=== PATIENT | female | born 1990 | race Caucasian/White ===

== ENCOUNTER 2019-07-04 14:38 | Inpatient (IN) | payer MEDICAID, OTHER ==
--- NOTE | 2019-07-04 16:20 | ED ---
Psych HPI - General Chief Complaint: Psychiatric Symptoms Stated Complaint: eps eval Time Seen by Provider: 07/04/19 15:09 Source: patient, RN notes reviewed, old records reviewed Mode of arrival: ambulatory - History of Present Illness Initial Comments: This is a 29-year-old female DF for evaluation patient presents today for evaluation. Patient did cut herself a few times as of late does admit to increased stress in her life having do with her living situation with her par ents as well as her kids she smokes marijuana denies drugs or alcohol. Patient does admit to severe depression MD Complaint: suicidal ideation, feels depressed -: minutes(s) Associated Psychiatric Symptoms: depression, suicidal ideation History of same: Yes Quality: intermittent Improves With: none Worsens With: none Context: recent drug abuse, not taking psychiatric medications Associated Symptoms: confusion Treatments Prior to Arrival: placed on mental health hold If Self Harm: admits thoughts of self harm - Related Data Home Medications Medication Instructions Recorded Confirmed Ibuprofen 800 mg PO ONCE PRN 07/04/19 07/04/19 Omeprazole 40 mg PO DAILY 07/04/19 07/04/19 clonazePAM 0.5 - 1 mg PO TID PRN 07/04/19 07/04/19 Allergies Allergy/AdvReac Type Severity Reaction Status Date / Time albuterol Allergy Dyspnea Verified 07/04/19 16:53 aspirin Allergy Rash/Hives Verified 07/04/19 16:53 codeine Allergy Nausea & Verified 07/04/19 16:53 Vomiting Review of Systems ROS Statement: Those systems with pertinent positive or pertinent negative responses have been documented in the HPI. ROS Other: All systems not noted in ROS Statement are negative. Past Medical History Past Medical History: No Reported History History of Any Multi-Drug Resistant Organisms: None Reported Past Surgical History: Tonsillectomy Past Psychological History: Anxiety Smoking Status: Current every day smoker Past Alcohol Use History: Occasional Past Drug Use History: Marijuana - Past Family History Father Family Medical History: Hypertension Additional Family Medical History / Comment(s): TIA Mother Family Medical History: Blood Disorder, GERD/Reflux Additional Family Medical History / Comment(s): "Possible hypertension Sister(s) History Unknown: Yes Additional Family Medical History / Comment(s): 1 sister Brother(s) Additional Family Medical History / Comment(s): Pt. reports that her older brother is 35 y/o- Living but unknown medical history. Pt. also has a 27 y/o brother-alive and no known medical issues General Exam Limitations: no limitations General appearance: alert, in no apparent distress Head exam: Present: atraumatic, normocephalic, normal inspection Eye exam: Present: normal appearance, PERRL, EOMI. Absent: scleral icterus, conjunctival injection, periorbital swelling ENT exam: Present: normal exam, mucous membranes moist Neck exam: Present: normal inspection. Absent: tenderness, meningismus, lymphadenopathy Respiratory exam: Present: normal lung sounds bilaterally. Absent: respiratory distress, wheezes, rales, rhonchi, stridor Cardiovascular Exam: Present: regular rate, normal rhythm, normal heart sounds. Absent: systolic murmur, diastolic murmur, rubs, gallop, clicks GI/Abdominal exam: Present: soft, normal bowel sounds. Absent: distended, tenderness, guarding, rebound, rigid Extremities exam: Present: normal inspection, full ROM, normal capillary refill. Absent: tenderness, pedal edema, joint swelling, calf tenderness Back exam: Present: normal inspection Neurological exam: Present: alert, oriented X3, CN II-XII intact Psychiatric exam: Present: normal affect, normal mood Skin exam: Present: warm, dry, intact, normal color. Absent: rash Course Vital Signs 07/04/19 15:00 Temperature 98.8 F Pulse Rate 89 Respiratory 18 Rate Blood Pressure 116/80 O2 Sat by Pulse 98 Oximetry - Reevaluation(s) Reevaluation #1: 07/04/19 22:06 Medical record is reviewed. Medical Decision Making - Medical Decision Making 29 female seen and evaluated by mental health decision made to treat for inpatient psychiatric evaluation - Lab Data Result diagrams: 07/05/19 06:41 07/05/19 06:41 Lab Results 07/04/19 07/04/19 07/04/19 Range/Units 15:50 15:50 15:50 Urine Color Yellow Urine Appearance Cloudy H (Clear) Urine pH 7.0 (5.0-8.0) Ur Specific [place] 1.016 (1.001-1.035) Urine Protein Trace H (Negative) Urine Glucose (UA) Negative (Negative) Urine Ketones Negative (Negative) Urine Blood Large H (Negative) Urine Nitrite Negative (Negative) Urine Bilirubin Negative (Negative) Urine Urobilinogen <2.0 (<2.0) mg/dL Ur Leukocyte Esterase Negative (Negative) Urine RBC 4 (0-5) /hpf Urine WBC 4 (0-5) /hpf Ur Squamous Epith Cells 9 H (0-4) /hpf Urine Bacteria Moderate H (None) /hpf Urine Mucus Many H (None) /hpf Urine HCG, Qual Not Detected (Not Detectd) Urine Opiates Screen Not Detected (NotDetected) Ur Oxycodone Screen Not Detected (NotDetected) Urine Methadone Screen Not Detected (NotDetected) Ur Propoxyphene Screen Not Detected (NotDetected) Ur Barbiturates Screen Not Detected (NotDetected) U Tricyclic Antidepress Not Detected (NotDetected) Ur Phencyclidine Scrn Not Detected (NotDetected) Ur Amphetamines Screen Not Detected (NotDetected) U Methamphetamines Scrn Not Detected (NotDetected) U Benzodiazepines Scrn Not Detected (NotDetected) Urine Cocaine Screen Not Detected (NotDetected) U Marijuana (THC) Screen Detected H (NotDetected) Disposition Clinical Impression: Depression, Suicidal ideation Disposition: TRANSFER TO PSYCH HOSP/UNIT Condition: Fair Is patient prescribed a controlled substance at d/c from ED?: No
[2019-07-04 17:25] LABS: Amphetamine Screen,Urine Not Detected (NotDetected); Barbiturate Screen,Urine Not Detected (NotDetected); Benzodiazepines Screen,Urine Not Detected (NotDetected); Cocaine Screen,Urine Not Detected (NotDetected); Methadone Screen, Urine Not Detected (NotDetected); Opiate Screen,Urine Not Detected (NotDetected); Oxycodone Screen, Urine Not Detected (NotDetected); Phencyclidine Screen,Urine Not Detected (NotDetected); Tricyclic Antidepressant,Urine Not Detected (NotDetected); Urn Cannabinoid Scrn Detected (NotDetected)
[2019-07-04] MEDS ORDERED: LORazepam 1 MG TAB PO STA (18:11)
[2019-07-04] MEDS ORDERED: MAGNESIUM HYDROXIDE 2,400 MG/10 ML CUP PO PRN (22:58)
[2019-07-04 23:30] LABS: Appearance,Urine Cloudy (Clear); Bacteria,Urine Moderate /hpf; Bilirubin,Urine Negative (Negative); Blood,Urine Large (Negative); Color,Urine Yellow; Glucose,Urine (UA) Negative (Negative); Ketones,Urine Negative (Negative); Leukocyte Esterase,Urine Negative (Negative); Mucus,Urine Many /hpf; Nitrite,Urine Negative (Negative); Protein,Urine Trace (Negative); RBC,Urine 4 /hpf (0-5); Specific Gravity,Urine 1.016 (1.001-1.035); Squamous Epithelial Cell,Urine 9 /hpf (0-4); Urobilinogen,Urine <2.0 mg/dL (<2.0); WBC,Urine 4 /hpf (0-5)
[2019-07-05] MEDS: ACETAMINOPHEN TAB 325 MG TAB PO PRN ×2 (01:02→17:58)
[2019-07-05] MEDS: clonazePAM 1 MG TAB PO PRN ×3 (01:03→22:18)
[2019-07-05] MEDS: NICOTINE 21MG/24HR PATCH TRANSDERM SCH ×2 (01:32→08:51)
[2019-07-05 06:55] LABS: Basophils % (A) 0 %; Eosinophils # (A) 0.3 k/uL (0-0.7); Eosinophils % (A) 3 %; HCT 43.1 % (34.0-46.0); Lymphocytes # (A) 4.4 k/uL (1.0-4.8); Lymphocytes % (A) 43 %; MCH 30.8 pg (25.0-35.0); MCHC 32.5 g/dL (31.0-37.0); MCV 94.8 fL (80.0-100.0); Mean Platelet Volume 6.9; Monocytes # (A) 0.4 k/uL (0-1.0); Monocytes % (A) 4 %; Neutrophils % (A) 49 %; Platelet Count 273 k/uL (150-450); RBC 4.55 m/uL (3.80-5.40); RDW 11.7 % (11.5-15.5); WBC 10.2 k/uL (3.8-10.6)
[2019-07-05 07:06] LABS: ALT 10 U/L (4-34); AST 17 U/L (14-36); African American GFR (CKD) >90 (>60 ml/min/1.73 sqM); Albumin 4.6 g/dL (3.5-5.0); Alkaline Phosphatase 57 U/L (38-126); Anion Gap 9 mmol/L; Blood Urea Nitrogen 13 mg/dL (7-17); Carbon Dioxide 29 mmol/L (22-30); Chloride 103 mmol/L (98-107); Cholesterol 191 mg/dL (<200); Glucose 100 mg/dL (74-99); HDL Cholesterol 41 mg/dL (40-60); LDL Cholesterol,Calculated 114 mg/dL (0-99); Non-African American GFR(CKD) >90 (>60 ml/min/1.73 sqM); Potassium 4.6 mmol/L (3.5-5.1); Sodium 141 mmol/L (137-145); Total Bilirubin 0.7 mg/dL (0.2-1.3); Total Protein 7.4 g/dL (6.3-8.2); Triglycerides 179 mg/dL (<150)
[2019-07-05] MEDS ORDERED: NICOTINE 21MG/24HR PATCH TRANSDERM SCH (09:00)
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
[2019-07-05 14:19] LABS: Hemoglobin A1C 5.2 % (4.0-6.0)
[2019-07-05] MEDS: MAG HYDROX/AL HYDROX/SIMETH 30 ML CUP PO PRN ×2 (17:58→22:18)
[2019-07-05] MEDS: MELATONIN 3 MG TABLET PO SCH (20:21)
[2019-07-05] MEDS: SERTRALINE 25 MG TAB PO SCH (20:21)
[2019-07-05 21:14] LABS: T4, Free (Free Thyroxine) 1.09 ng/dL (0.78-2.19)
--- NOTE | 2019-07-05 22:33 | P.CONS ---
History of Present Illness - History of Present Illness This is a pleasant 20 female with past medical history of anxiety and depression and cigarette smoker, history of substance abuse including marijuana and cocaine. With occasional alcohol abuse. He was admitted to the mental health unit for signs and symptoms of depression. Medical consult has been obtained for medical management. Patient denies any specific complaints, no chest pain, no dyspnea, no abdominal pain, nausea vomiting, no change in urine or bowel habits. No fever Vital signs stable. Patient labs include a CBC, BMP and liver enzymes were unremarkable. Glucose 100, cholesterol 191, LDL is 1.4, urine is cloudy with 4 RBCs and 4 WBCs which are within normal limits. Urine drug screen is positive for marijuana TSH is 6.1, free T4 is normal Patient states she has currently managed well with Some blood in the urine, no UTIs signs symptoms, I offered to do test but patient declined, risks benefits and alternatives explained. She was concerned about her abnormal TSH stating that her father had thyroid disease and she wants to follow up with purchasing and claims supervisor, contact information for Dr. Obando is provided for the patient and patient agrees to call and make her own appointment upon discharge and she agrees Review of Systems CONSTITUTIONAL: No fever, no malaise, no fatigue. HEENT: No recent visual problems or hearing problems. Denied any sore throat. CARDIOVASCULAR: No orthopnea, PND, no palpitations, no syncope. PULMONARY: No shortness of breath, no cough, no hemoptysis. GASTROINTESTINAL: No diarrhea, no nausea, no vomiting, no abdominal pain. Normoactive bowel sounds. NEUROLOGICAL: No headaches, no weakness, no numbness. HEMATOLOGICAL: Denies any bleeding or petechiae. GENITOURINARY: Denies any burning micturition, frequency, or urgency. MUSCULOSKELETAL/RHEUMATOLOGICAL: Denies any joint pain, swelling, or any muscle pain. ENDOCRINE: Denies any polyuria or polydipsia. Past Medical History Past Medical History: No Reported History History of Any Multi-Drug Resistant Organisms: None Reported Past Surgical History: Section, Tonsillectomy Past Anesthesia/Blood Transfusion Reactions: No Reported Reaction Past Psychological History: Anxiety, Depression Smoking Status: Current every day smoker Past Alcohol Use History: Occasional Past Drug Use History: Cocaine, Marijuana, Prescription Drug Abuse - Past Family History Father Family Medical History: Hypertension Additional Family Medical History / Comment(s): TIA Mother Family Medical History: Blood Disorder, GERD/Reflux Additional Family Medical History / Comment(s): "Possible hypertension Sister(s) History Unknown: Yes Additional Family Medical History / Comment(s): 1 sister Brother(s) Additional Family Medical History / Comment(s): Pt. reports that her older brother is 35 y/o- Living but unknown medical history. Pt. also has a 27 y/o brother-alive and no known medical issues Medications and Allergies Home Medications Medication Instructions Recorded Confirmed Type Ibuprofen 800 mg PO ONCE PRN 07/04/19 07/04/19 History Omeprazole 40 mg PO DAILY 07/04/19 07/04/19 History clonazePAM 0.5 - 1 mg PO TID PRN 07/04/19 07/04/19 History Allergies Allergy/AdvReac Type Severity Reaction Status Date / Time albuterol Allergy Dyspnea Verified 07/04/19 16:53 aspirin Allergy Rash/Hives Verified 07/04/19 16:53 codeine Allergy Nausea & Verified 07/04/19 16:53 Vomiting Physical Exam Vitals: Vital Signs Temp Pulse Pulse Resp BP BP Pulse Ox 07/04/19 23:26 97.7 F 74 18 106/68 98 07/04/19 15:00 98.8 F 89 18 116/80 98 Intake and Output 07/04/19 07/05/19 07/05/19 22:59 06:59 14:59 Other: Weight 68.039 kg 66.678 kg GENERAL: The patient is alert and oriented x3, not in any acute distress. Well developed, well nourished. HEENT: Pupils are round and equally reacting to light. EOMI. No scleral icterus. No conjunctival pallor. Normocephalic, atraumatic. No pharyngeal erythema. No thyromegaly. CARDIOVASCULAR: S1 and S2 present. No murmurs, rubs, or gallops. PULMONARY: Chest is clear to auscultation, no wheezing or crackles. ABDOMEN: Soft, nontender, nondistended, normoactive bowel sounds. No palpable organomegaly. MUSCULOSKELETAL: No joint swelling or deformity. EXTREMITIES: No cyanosis, clubbing, or pedal edema. NEUROLOGICAL: Gross neurological examination did not reveal any focal deficits. SKIN: No rashes. No petechiae Results CBC & Chem 7: 07/05/19 06:41 07/05/19 06:41 Labs: Abnormal Lab Results - Last 24 Hours (Table) 07/04/19 07/04/19 07/05/19 Range/Units 15:50 15:50 06:41 Glucose 100 H (74-99) mg/dL Triglycerides 179 H (<150) mg/dL LDL Cholesterol, Calc 114 H (0-99) mg/dL TSH 6.130 H (0.465-4.680) mIU/L Urine Appearance Cloudy H (Clear) Urine Protein Trace H (Negative) Urine Blood Large H (Negative) Ur Squamous Epith Cells 9 H (0-4) /hpf Urine Bacteria Moderate H (None) /hpf Urine Mucus Many H (None) /hpf U Marijuana (THC) Screen Detected H (NotDetected) Assessment and Plan Assessment: -Depression anxiety and other psychiatric illnesses, management as per psych primary team -Seated smoker, patient was counseled to quit, she declines. -Substance abuse program marijuana, patient was counseled to quit -History of substance abuse including cocaine, morbidly and others, not an active issue. -Patient was counseled for low fat diet -High TSH, normal T4 suspicious for subclinical hyperthyroidism. Follow-up as an outpatient with PCP. Patient was to see purchasing and claims supervisor as an outpatient and information is provided for her and she agrees Patient is low risk for DVT, no need for completion Patient was instructed to follow up with her PCP Dr. Baxter in 1 week and she agrees Thank you for consulting us, we will see the patient on as needed basis. [facility] free to contact us for any further questions or concerns
[2019-07-06] MEDS: MAG HYDROX/AL HYDROX/SIMETH 30 ML CUP PO PRN ×3 (05:03→18:55)
[2019-07-06] MEDS: NICOTINE 21MG/24HR PATCH TRANSDERM SCH (09:08)
[2019-07-06] MEDS: PANTOPRAZOLE 40 MG TABLET PO SCH (11:12)
[2019-07-06] MEDS: clonazePAM 1 MG TAB PO PRN ×2 (11:15→22:23)
--- NOTE | 2019-07-06 11:38 | P.PN ---
Progress Note - Text Interval history: The patient is found in the [facility] she follows me to an interview room. She indicates that her mood is mildly better. She had an episode of emesis yesterday. Internal medicine" her on Protonix and Zofran as needed she has been using Maalox. She states that she does have a history of colitis in the remote past. This also may be reflux related. She has no questions or concerns regarding the Zoloft. She did have a phone conversation with her boyfriend which seemed to go well. She has been attending groups. She was able to sleep last night. She did not eat breakfast this morning due to her nausea. Mental status exam: The patient is an alert female appearing her stated age she is dressed in her own clothing she is wearing a blanket over top. Eye contact is appropriate speech is fluent and spontaneous nonpressured. She indicates her mood is a little better she reports no acute suicidal ideation intent or plan at this time. She reports no auditory or visual hallucinations or any specific delusions. There is no observed evidence of psychosis. She demonstrates no verbal or physical aggressiveness she demonstrates no involuntary repetitive movements. Insight and judgment grossly intact. Plan: The patient will continue on the Zoloft we are using a low dose as she is concerned about potential side effects. We discussed that this will need to be titrated further during the course of the hospitalization. She is encouraged to participate in the milieu. We will monitor for safety. Vital signs reviewed.
[2019-07-06] MEDS: ACETAMINOPHEN TAB 325 MG TAB PO PRN (18:55)
[2019-07-06] MEDS: SERTRALINE 25 MG TAB PO SCH (22:23)
[2019-07-06] MEDS: MELATONIN 3 MG TABLET PO SCH (22:23)
[2019-07-07] MEDS: ACETAMINOPHEN TAB 325 MG TAB PO PRN ×2 (00:04→19:22)
[2019-07-07] MEDS: MAG HYDROX/AL HYDROX/SIMETH 30 ML CUP PO PRN ×2 (00:05→19:26)
[2019-07-07] MEDS: PANTOPRAZOLE 40 MG TABLET PO SCH (07:57)
[2019-07-07] MEDS: NICOTINE 21MG/24HR PATCH TRANSDERM SCH (07:57)
[2019-07-07] MEDS: ONDANSETRON ODT 4 MG TAB PO PRN (07:57)
[2019-07-07] MEDS: clonazePAM 1 MG TAB PO PRN ×2 (10:44→21:52)
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
[2019-07-07 20:58] LABS: Glucose,Whole Blood 99 mg/dL (75-99)
[2019-07-07] MEDS: MELATONIN 3 MG TABLET PO SCH (21:51)
[2019-07-07] MEDS: SERTRALINE 25 MG TAB PO SCH (21:51)
[2019-07-08 06:19] VITALS: RESP 16; TEMP 98.6
[2019-07-08] MEDS: ONDANSETRON ODT 4 MG TAB PO PRN (07:03)
[2019-07-08] MEDS: NICOTINE 21MG/24HR PATCH TRANSDERM SCH (08:35)
[2019-07-08] MEDS: PANTOPRAZOLE 40 MG TABLET PO SCH (08:36)
[2019-07-08 08:39] VITALS: BP 124/86; PULSE 74
[2019-07-08] MEDS: clonazePAM 1 MG TAB PO PRN (12:11)
[2019-07-08] MEDS: ACETAMINOPHEN TAB 325 MG TAB PO PRN (12:12)
--- NOTE | 2019-07-08 12:40 | P.DS ---
Providers Date of admission: 07/04/19 22:53 Attending physician: Danny Jordan MD Consults: 07/04/19 22:58 Consult Physician Routine Consulting Provider: Wally Wellington Consult Reason/Comments: Medical Management Do you want consulting provider notified?: Yes, Notify in am Primary care physician: Aris Ordonez - Discharge Diagnosis(es) (1) Suicidal ideation Current Visit: Yes Status: Suspected Priority: Low (2) Deliberate self-cutting Current Visit: Yes Status: Chronic Priority: Low (3) Major depressive disorder, recurrent severe without psychotic features Current Visit: Yes Status: Acute Priority: Medium (4) Alcohol use disorder, mild, abuse Current Visit: Yes Status: Chronic Priority: Medium (5) Cannabis use disorder, moderate, dependence Current Visit: Yes Status: Chronic Priority: Medium (6) Borderline personality disorder Current Visit: Yes Status: Chronic Priority: High Hospital Course: She is a 29-year-old single female admitted voluntarily to the psychiatric unit with a history of suicidal ideation and of her self cutting. She reported that she had cut herself on the medial right ankle superficially on a daily admission. His feeling depressed and overwhelmed and had suicidal ideation. She described several symptoms depression including lack of energy, decreased interest in activities, and decreased appetite. She is she was tearful and described feeling hopeless, lost and "useless". These symptoms have been present for last 2 weeks and intensified on the week prior to admission. His symptoms developed following a separation from her most recent boyfriend and a temporary absence of her 5-year-old son. She shares joint custody with his father and the custody arrangements was temporarily disrupted with her son developed a fever while visiting with his father. She endorsed no psychotic symptoms and she has no history of chyna or hypomania. She has long history of deliberate nonlethal self-harm including burning herself and cutting herself beginning in her teen years. However she reports that she has not exhibited these behaviors for the last 7 years. She is not beat with a outpatient therapist. Her primary care provider has prescribed prescribing Klonopin for complaints of anxiety or she is taking up to 3 mg per day. She has a history of intermittent heavy alcohol use and daily heavy marijuana use. Her UDS was positive for cannabis on a drug screen. She occasionally uses her friend's Adderall but denied that she has regularly used or abused Adderall. She has history of using several illicit drugs in the past but has not used t hem in several years. She is never been placed in a residential treatment program for substance use. We admitted her psychiatric unit under care of this typewriter ribbon winder. We provided a comprehensive biopsychosocial assessment. The showroom consultant career technical education instructor completed initial physical exam and medical history and diagnosed height TSH, normal T4 suspicious of subclinical hypothyroidism. Reconsult her on her high use of benzodiazepine and decreased her dose of clonazepam to 1 mg by mouth twice a day with recommendation to continue to taper the dose. We started Zoloft 25 mg daily for the treatment of anxiety and depressive symptoms and increase the dose to 50 mg her to discharge. She participated actively in therapeutic groups and activities. She interacted appropriately with treatment staff and peers. She posed no management problem and had no episodes of behavioral dyscontrol. During individual therapy sessions she described a history of unstable interpersonal relationships, recurrent substance abuse, mood lability, intolerance of being alone and history of self-harm. We discussed treatment options and she agreed to referral for dialectical behavioral therapy. Time of discharge she presented as a casually groomed and casually dressed young female who was pleasant on approach. She made eye contact and attended to the interview. She had noticed significant features or prominent physical abnormalities. She had a bright facial expression. She was alert and oriented to person, place and time. She showed no abnormality of psychomotor activity. Her speech was spontaneous with normal rate, rhythm and volume. Affect was bright, stable and appropriate. She denied suicidal ideation, wishes or homicidal ideation. She denied feeling hopeless, helpless or worthless. She denied express ideas reference, paranoid ideation or delusions. Her thinking was abstract and associations were coherent, logical and goal directed. She denied hallucinations and did not appear to be responding to internal stimuli. Patient Condition at Discharge: Stable Plan - Discharge Summary Discharge Rx Participant: No New Discharge Prescriptions: New Nicotine 21Mg/24Hr Patch [Habitrol] 1 patch TRANSDERM DAILY #28 patch clonazePAM [KlonoPIN] 1 mg PO BID PRN #30 tab PRN Reason: Anxiety Melatonin 6 mg PO HS #30 tablet Sertraline [Zoloft] 50 mg PO DAILY #30 tab Continue Omeprazole 20 mg PO DAILY Ibuprofen 800 mg PO ONCE PRN PRN Reason: Pain Discontinued clonazePAM 0.5 - 1 mg PO TID PRN PRN Reason: Anxiety Discharge Medication List Ibuprofen 800 mg PO ONCE PRN 07/04/19 [History] Omeprazole 20 mg PO DAILY 07/04/19 [History] Melatonin 6 mg PO HS #30 tablet 07/08/19 [Rx] Nicotine 21Mg/24Hr Patch [Habitrol] 1 patch TRANSDERM DAILY #28 patch 07/08/19 [Rx] Sertraline [Zoloft] 50 mg PO DAILY #30 tab 07/08/19 [Rx] clonazePAM [KlonoPIN] 1 mg PO BID PRN #30 tab 07/08/19 [Rx] Follow up Appointment(s)/Referral(s): [facility] [Outside] - 07/10/19 12:30 pm (w/Thema) Abran Obando MD [REFERRING] - 1 Week (Lecturer In Computer Science for subclinical hyperthyroidism) Aris Ordonez MD [Primary Care Provider] - 1-2 days Patient Instructions/Handouts: How to Stop Smoking (DC), Depression (DC) Activity/Diet/Wound Care/Special Instructions: Activity and diet as tolerated. Avoid the use of street drugs and alcohol. Take all medications as prescribed. When you are in need of refills on your medications please contact your medical provider and/or outpatient psychiatrist to have this done. Please go to scheduled outpatient appointment for aftercare treatment. If symptoms return or become worse, call the crisis line at and/or go to the nearest emergency room for evaluation. Discharge Disposition: HOME SELF-CARE
[2019-07-09] MEDS ORDERED: SERTRALINE 50 MG TAB PO SCH (09:00)
== END 2019-07-08 14:50 | disposition home or self-care (01) | DRG 885 ==
LOC: EC 14:38 → 3MHU 22:53
PROVIDERS: ADMIT Psychiatry & Neurology Psychiatry; ATTEND Psychiatry & Neurology Psychiatry
DX: F33.2 Major depressive disorder, recurrent severe without psychotic features (principal); R45.851 Suicidal ideations; F10.10 Alcohol abuse, uncomplicated; F12.20 Cannabis dependence, uncomplicated; F17.210 Nicotine dependence, cigarettes, uncomplicated; F41.9 Anxiety disorder, unspecified; F60.3 Borderline personality disorder; R11.2 Nausea with vomiting, unspecified; R94.6 Abnormal results of thyroid function studies; Z56.0 Unemployment, unspecified; Z71.51 Drug abuse counseling and surveillance of drug abuser; Z71.6 Tobacco abuse counseling; Z91.5 Personal history of self-harm; Z79.899 Other long term (current) drug therapy; Z88.6 Allergy status to analgesic agent; Z88.5 Allergy status to narcotic agent; Z88.8 Allergy status to other drugs, medicaments and biological substances; Z82.49 Family history of ischemic heart disease and other diseases of the circulatory system; Z82.0 Family history of epilepsy and other diseases of the nervous system
CPT/HCPCS: 80053; 80061; 80306; 81001; 81025; 82075; 83036; 84439; 84443; 85025; 99285